=== PATIENT | male | born 1975 | race Caucasian/White ===

== ENCOUNTER 2017-01-07 10:48 | Emergency (ER) | payer SELFPAY ==
--- NOTE | 2017-01-08 15:40 | ER ---
ADMIT: 01/07/2017 RM/LOC: [facility] MR#: [id number] [place], [place] [id number] MELITA MORA [address] [place] [address] Emergency Room Report SEX: M AGE: 41 : 1975 DATE: 01/07/2017 For chief complaint, history of present illness, past medical history, medications, allergies, review of systems, including physical exam, please see my T-sheet. INTERIM HISTORY: The patient is a 41-year-old, white male, who presents to the emergency room with back pain. He has had back pain off and on for quite some time. He feels like his back is "locked up." He denies any injury. 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 He denies any specific injury. He has been using some anti-inflammatories. PHYSICAL EXAMINATION: Vital signs are stable. He does have some spasm into the lumbar spine to palpation. There are no radicular symptoms. The patient has some limited range of motion of flexion. IMPRESSION: 1. Musculoskeletal spasm. 2. Back pain. Home, rest, activity as tolerated. The patient was given a prescription for [place], #15; Valium, #10. Home, rest, activity as tolerated, anti- inflammatories are important additionally. The patient is in stable condition at discharge. KIM Coe / Artemio Balderas MD / modl JOB #: [id number] CC: Artemio Balderas MD, Attending Physician Rachel Barajas MD, Family Physician
== END 2017-01-07 11:20 | disposition home or self-care (01) ==
LOC: ER 10:48
DX: M62.830 Muscle spasm of back (principal); Z88.1 Allergy status to other antibiotic agents; F17.210 Nicotine dependence, cigarettes, uncomplicated; Z79.899 Other long term (current) drug therapy